=== PATIENT | male | born 2000 | race Hispanic/Latino ===

== ENCOUNTER 2018-02-19 12:50 | Emergency (ER) | payer BC ==
--- NOTE | 2018-02-19 14:45 | ER ---
Nurse's Notes [facility] Name: Cabrera Enrique Age: 18 yrs Sex: Male : 2000 Arrival Date: 02/19/2018 Time: 12:50 Bed 17 Private MD: None, None Diagnosis: Unspecified injury of head Presentation: 02/19 13:07 Presenting complaint: Patient states: head injury occurred Thursday and has been sv having headache after being outside for work. Advil taken yesterday. Denies blurry vision or double vision. Transition of care: patient was not received from another setting of care. Onset of symptoms was February 17, 2018. Risk Assessment: Do you want to hurt yourself or someone else? Patient reports no desire to harm self or others. Care prior to arrival: None. 13:07 Method Of Arrival: Ambulatory sv 13:07 Acuity: SHELBY 4 sv Historical: - Allergies: 13:09 No Known Allergies; sv - Home Meds: 13:09 None [Active]; sv - PMHx: 13:09 None; sv - PSHx: 13:09 Tonsillectomy; sv - Immunization history:: Adult Immunizations up to date. - Social history:: Smoking status: Patient/guardian denies using tobacco, Patient uses alcohol, weekly. - Ebola Screening: : No symptoms or risks identified at this time. Vital Signs: 13:09 BP 116 / 48; Pulse 52; Resp 18; Temp 97.9; Pulse Ox 99% ; Weight 104.33 kg; Height 5 sv ft. 9 in. (175.26 cm); Pain 2/10; 13:09 Body Mass Index 33.96 (104.33 kg, 175.26 cm) sv ED Course: 12:50 Patient arrived in ED. mr 12:51 None, None is Private Physician. mr 13:09 Triage completed. sv 13:10 Arm band placed on right wrist. sv 14:04 Sam Corral, RN is Primary Nurse. sg 14:04 Sam Corral, FIDENCIO is Primary Nurse. sg 14:05 Gordo Haq PA is PHCP. [facility] 14:05 Wilbur Martinez MD is Attending Physician. ildefonso Administered Medications: No medications were administered Outcome: 14:44 Discharge ordered by . [facility] 14:52 Patient left the ED. ag Signatures: Rosa Rai, Sam Noguera RN, RN RN sg Mickail, Joel, PA PA jmm Rivera, Maria mr Gallardo, Ana ag
--- NOTE | 2018-02-19 14:45 | EDPHYS ---
Physician Documentation [facility] Name: Cabrera Enrique Age: 18 yrs Sex: Male : 2000 Arrival Date: 02/19/2018 Time: 12:50 Bed 17 Private MD: None, None ED Physician Wilbur Martinez HPI: 02/19 14:40 This 18 yrs old Male presents to ER via Ambulatory with complaints of Headache.jmm 14:40 The patient describes the headache as aching, intermittent. Onset: The symptoms/episode jmm began/occurred gradually, 2 day(s) ago. Associated signs and symptoms: Pertinent negatives: altered mental status, dizziness, nausea, neck stiffness, Photophobia vision changes, vision loss, vomiting. This is a 18 year old male with no chronic medical conditions that presents to the ED with generalized headache beginning after hitting his head on the bottom of his car while sitting up. Patient denies vomiting, LOC, vomiting, seizure, behavior change, difficulty walking since. . Historical: - Allergies: 13:09 No Known Allergies; sv - Home Meds: 13:09 None [Active]; sv - PMHx: 13:09 None; sv - PSHx: 13:09 Tonsillectomy; sv - Immunization history:: Adult Immunizations up to date. - Social history:: Smoking status: Patient/guardian denies using tobacco, Patient uses alcohol, weekly. - Ebola Screening: : No symptoms or risks identified at this time. ROS: 14:40 Constitutional: Negative for fever, chills, and weight loss, Cardiovascular: Negative jmm for chest pain, palpitations, and edema, Respiratory: Negative for shortness of breath, cough, wheezing, and pleuritic chest pain, Abdomen/GI: Negative for abdominal pain, nausea, vomiting, diarrhea, and constipation. 14:40 Neuro: Positive for headache. 14:40 All other systems are negative. Exam: 14:40 Constitutional: This is a well developed, well nourished patient who is awake, alert, jmm and in no acute distress. Head/Face: atraumatic. 14:40 Head/face: no raccon eyes, no wells signs appreciated. 14:40 Eyes: Extraocular movements: intact throughout, Conjunctiva: normal. 14:40 ENT: TM's: hemotympanum, is not appreciated. 14:40 Neck: C-spine: appears grossly normal, ROM/movement: is normal. 14:40 Cardiovascular: Rate: normal. 14:40 Respiratory: the patient does not display signs of respiratory distress, Respirations: normal. 14:40 Back: ROM is normal. 14:40 Musculoskeletal/extremity: ROM: no acute changes. 14:40 Skin: Appearance: Color: normal in color. 14:40 Neuro: Orientation: is normal, Mentation: is normal, Memory: is normal, Cerebellar function: normal finger to nose testing, Gait: is steady. 14:40 Psych: Behavior/mood is pleasant, cooperative. Vital Signs: 13:09 BP 116 / 48; Pulse 52; Resp 18; Temp 97.9; Pulse Ox 99% ; Weight 104.33 kg; Height 5 sv ft. 9 in. (175.26 cm); Pain 2/10; 13:09 Body Mass Index 33.96 (104.33 kg, 175.26 cm) sv MDM: 14:40 Data reviewed: vital signs, nurses notes. ED course: [facility] CT rules does not [facility] recommend CT imaging. Injury 2 days from onset. I do currently suspect intracranial bleed. Neuro exam normal. Patient given head injury return precautions. . 14:42 Patient medically screened. [facility] Administered Medications: No medications were administered Disposition: 18:28 Co-signature as Attending Physician, Wilbur Martinez MD. rn Disposition: 02/19/18 14:44 Discharged to Home. Impression: Unspecified injury of head. - Condition is Stable. - Discharge Instructions: Head Injury, Adult. - School release form, Work release form, Medication Reconciliation Form, Thank You Letter, Antibiotic Education, Prescription Opioid Use form. - Follow up: Private Physician; When: As needed; Reason: Continuance of care. Signatures: Rosa Rai RN RN Gordo Langley PA PA jmm Nieto, Roman, MD MD rn Gallardo, Ana ag Corrections: (The following items were deleted from the chart) 14:52 14:44 02/19/2018 14:44 Discharged to Home. Impression: Unspecified injury of head. ag Condition is Stable. Forms are Medication Reconciliation Form, Thank You Letter, Antibiotic Education, Prescription Opioid Use. Follow up: Private Physician; When: As needed; Reason: Continuance of care. jmm
== END 2018-02-19 14:52 | disposition home or self-care (01) ==
LOC: ER 12:50
DX: S09.90XA Unspecified injury of head, initial encounter (principal); W22.8XXA Striking against or struck by other objects, initial encounter; Y93.9 Activity, unspecified; Y92.9 Unspecified place or not applicable
CPT/HCPCS: 99281